=== PATIENT | male | born 1975 | race African-American/Black ===

== ENCOUNTER 2017-11-19 18:32 | Emergency (ER) | payer BC, SELFPAY ==
[2017-11-19 19:14] LABS: Bilirubin Negative (Negative); Blood, Urine Negative (Negative); Clarity CLEAR (Clear); Glucose, Urine (Dipstick) Negative (Negative); Leukocyte Negative (Negative); Nitrite Negative (Negative); Protein, Urine (Dipstick) Negative (Neg-Trace); Specific Gravity, Urine 1.026 (1.002-1.036); pH, Urine 5.5 (5.0-9.0)
== END 2017-11-19 19:33 | disposition home or self-care (01) ==
LOC: ERS 18:32
DX: R10.32 Left lower quadrant pain (principal); F17.210 Nicotine dependence, cigarettes, uncomplicated
CPT/HCPCS: 81003; 99284

== ENCOUNTER 2017-12-26 13:01 | Emergency (ER) | payer SELFPAY ==
[2017-12-26] MEDS ORDERED: Adacel (T-DAP) 0.5 ML VIAL ONE (13:24)
--- NOTE | 2017-12-26 14:00 | RAD ---
3 VIEWS LEFT INDEX FINGER: Date: 12/26/17 COMPARISON: None. HISTORY: Trauma with pain. FINDINGS: Three views of the left index finger show no evidence of acute fracture or dislocation. Mild soft tis shaye swelling is seen. No degenerative changes are present. IMPRESSION: Unremarkable exam. POS: [facility]
[2017-12-26] MEDS ORDERED: Bacitracin Zinc 1 Packet ONE (14:13)
== END 2017-12-26 14:18 | disposition home or self-care (01) ==
LOC: ERS 13:01
DX: S61.237A Puncture wound without foreign body of left little finger without damage to nail, initial encounter (principal); I10 Essential (primary) hypertension; F17.210 Nicotine dependence, cigarettes, uncomplicated; Z23 Encounter for immunization; W29.8XXA Contact with other powered hand tools and household machinery, initial encounter; Y92.69 Other specified industrial and construction area as the place of occurrence of the external cause; Y99.0 Civilian activity done for income or pay
CPT/HCPCS: 90471; 90715

== ENCOUNTER 2018-02-26 21:50 | Emergency (ER) | payer SELFPAY ==
--- NOTE | 2018-02-26 22:31 | RAD ---
THREE VIEWS LEFT HAND 02/26/18 COMPARISON: None. HISTORY: Trauma, pain. FINDINGS: There are comminuted mildly displaced fractures involving the mid/distal aspect of the third and the fourth distal phalanges. No intra-articular extension or evidence of dislocation seen. IMPRESSION: Acute fractures involving the third and the fourth distal phalanges. POS: [facility]
[2018-02-27] MEDS ORDERED: HYDROcodone/Acetaminophen 5/325 mg Tablet ONE (00:02)
[2018-02-27] MEDS ORDERED: Ketorolac Tromethamine 30 MG/ML VIAL ONE (00:02)
== END 2018-02-27 00:48 | disposition home or self-care (01) ==
LOC: ERS 21:50
DX: S62.633A Displaced fracture of distal phalanx of left middle finger, initial encounter for closed fracture (principal); S62.638A Displaced fracture of distal phalanx of other finger, initial encounter for closed fracture; I10 Essential (primary) hypertension; F17.210 Nicotine dependence, cigarettes, uncomplicated; W20.8XXA Other cause of strike by thrown, projected or falling object, initial encounter
CPT/HCPCS: 96372; J1885

== ENCOUNTER 2018-03-02 08:46 | Emergency (ER) | payer SELFPAY ==
--- NOTE | 2018-03-02 11:41 | RAD ---
LEFT HAND RADIOGRAPHS THREE VIEWS: Date: 03-02-18 Provided Clinical History: Pain status post injury. FINDINGS: Comparison is made with study dated 02-26-18. Fractures of the terminal ephraim of the 3rd and 4th digit s redemonstrated. No additional fracture is evident. Alignment appear anatomic. Joint spaces appear p reserved. IMPRESSION: 3rd and 4th digit distal phalangeal fractures are redemonstrated. POS: [facility]
== END 2018-03-02 11:40 | disposition home or self-care (01) ==
LOC: ERS 08:46
DX: S62.633A Displaced fracture of distal phalanx of left middle finger, initial encounter for closed fracture (principal); S62.635A Displaced fracture of distal phalanx of left ring finger, initial encounter for closed fracture; Z71.6 Tobacco abuse counseling; I10 Essential (primary) hypertension; F17.210 Nicotine dependence, cigarettes, uncomplicated; W23.0XXA Caught, crushed, jammed, or pinched between moving objects, initial encounter
CPT/HCPCS: 99406

== ENCOUNTER 2019-10-09 17:26 | Emergency (ER) | payer SELFPAY ==
[~2019-10-09 17:26] MED LIST: Iopamidol-370 76% 500 ML 1 ML ONE
[2019-10-09 20:08] LABS: #Basophils 0.1 thou/uL (0.0-0.2); #Eosinphils 0.3 thou/uL (0.0-0.7); #Lymphocytes 2.3 thou/uL (1.20-3.40); #Monocytes 1.1 thou/uL (0.11-0.59); #Neutrophils 11.6 thou/uL (1.40-6.50); %Basophils 0.5 % (0.0-1.0); %Eosinophils 1.9 % (0.0-10.0); %Monocytes 7.2 % (0.0-10.0); %Neutrophils 75.4 % (42.0-75.0); Mean Corpuscular HGB CONC 34.1 g/dL (32.0-36.0); Mean Corpuscular Hemoglobin 32.8 pg (27.0-31.0); Mean Corpuscular Volume 96.2 fL (78.0-98.0); Platelet Count 209 thou/uL (130-400); RBC Distribution Width 11.4 % (11.5-14.5); Red Blood Cell (RBC) Count 4.87 mill/uL (4.70-6.10); White Blood Cell (WBC) Count 15.4 thou/uL (4.8-10.8)
[2019-10-09 20:17] LABS: Bacteria/HPF None Seen HPF (None Seen); Bilirubin Negative (Negative); Blood, Urine Negative (Negative); Clarity Clear (Clear); Glucose, Urine (Dipstick) Normal (Negative); Leukocyte 25 Leu/uL (Negative); Mucous/LPF 2+ LPF (<2+); Nitrite Negative (Negative); Protein, Urine (Dipstick) Negative (Neg-Trace); RBC/HPF 0-3 HPF (0-3); Squamous Epithelial 0-3 HPF (0-3); WBC/HPF 0-3 HPF (0-3)
[2019-10-09 20:31] LABS: ALT (SGPT) 10 U/L (8-55); AST (SGOT) 21 U/L (5-34); Albumin 4.6 g/dL (3.5-5.0); Alkaline Phosphatase 74 U/L (40-110); Anion Gap 12 mmol/L (10-20); BUN (Urea Nitrogen) 9 mg/dL (8.9-20.6); Bilirubin, Total 1.3 mg/dL (0.2-1.2); Calc. Creatinine Clearance 0 mL/min (70-130); Calcium 9.6 mg/dL (7.8-10.44); Carbon Dioxide 28 mmol/L (22-29); Chloride 100 mmol/L (98-107); Estimated GFR-MDRD Greater than 90; Globulin 3.4 g/dL (2.4-3.5); Glucose 84 mg/dL (70-105); Lipase 14 U/L (8-78); Potassium 3.9 mmol/L (3.5-5.1); Sodium 136 mmol/L (136-145)
[2019-10-09] MEDS ORDERED: Ketorolac Tromethamine 30 MG/ML VIAL ONE (20:39)
--- NOTE | 2019-10-09 20:40 | CT ---
CT abdomen and pelvis with IV contrast HISTORY: Left groin pain. FINDINGS: Subtle patchy parenchymal groundglass infiltrate is present at the left lateral lung base. Less prominent, very subtle patchy groundglass infiltrate at the right posterior lung base. Solid organs of the abdomen and pelvis are intact. Urinary bladder decompressed. No evidence of bowel obstruction. Large amount of stool within the right colon. IMPRESSION: Mild bibasilar lung parenchymal infiltrates. Clinical correlation regarding other signs a nd symptoms of bibasilar pneumonitis is required. Large amount of stool within the right colon. Clinical correlation regarding other signs and symptoms of constipation is required.
== END 2019-10-09 21:26 | disposition home or self-care (01) ==
LOC: ERS 17:26
DX: R10.32 Left lower quadrant pain (principal); R10.31 Right lower quadrant pain; I10 Essential (primary) hypertension; F17.210 Nicotine dependence, cigarettes, uncomplicated
CPT/HCPCS: 36415; 74177; 80053; 81003; 81015; 83690; 85025; 96374; J1885; Q9967